=== PATIENT | male | born 1970 | race African-American/Black ===

== ENCOUNTER → 2016-09-11 | Outpatient (CLI) | payer BC ==
[~2016-09-11] MED LIST: AUGMENTIN 875 M1 TAB PO; CIPROFLOXACIN500 MG PO; DAYPRO600 M1 PO; FLONASE0.05 MG/AC NS; GLIPIZIDE XL5 MG PO; HTN MED PO; HYDROCODONE BIT1 T11 PO; LOPRESSOR25 MG PO; METFORMIN500 MG PO; PREVACID30 M1 PO; TRADJENTA; VICODIN 500 MG-1 TAB PO; ZESTRIL2.5 MG PO
[2016-09-11 13:31] LABS: BASO # 0.1 10*3/uL (0.0-0.1); BASO % 0.7 % (0.0-1.0); EOS # 0.2 10*3/uL (0.0-0.4); EOS % 1.4 % (1.0-4.0); HEMATOCRIT 47.9 % (42.0-52.0); HEMOGLOBIN 16.7 g/dl (14.0-18.0); IG # 0.1 10*3/uL (0.0-0.1); LYMPH # 2.4 10*3/uL (1.3-4.4); LYMPH % 21.3 % (27.0-41.0); MEAN CELL VOLUME 88.4 fl (80.0-94.0); MEAN CORPUSCULAR HGB 30.8 pg (27.0-31.0); MEAN CORPUSCULAR HGB CONC 34.9 g/dl (33.0-37.0); MEAN PLATELET VOLUME 9.9 fl (9.6-12.3); MONO % 9.1 % (3.0-9.0); NEUT # 7.6 10*3/uL (2.3-7.9); NEUT % 66.9 % (47.0-73.0); PLATELET COUNT AUTOMATED 321 10*3/uL (130-400); RED BLOOD COUNT 5.42 10*6/uL (4.50-5.90); RED CELL DISTRI WIDTH 12.8 % (0-14.5); WHITE BLOOD COUNT 11.3 10*3/uL (4.8-10.8)
[2016-09-11 13:59] LABS: ALBUMIN 3.9 gm/dl (3.1-4.5); ALKALINE PHOSPHATASE 82 U/L (45-117); BILIRUBIN, TOTAL 0.8 mg/dl (0.2-1.0); BUN 10 mg/dl (7-24); CARBON DIOXIDE 24 mmol/L (21-32); CHLORIDE 106 mmol/L (98-107); CHOLESTEROL 149 mg/dL (<200); EST GLOM FILT AFRICAN AMERICAN > 60 ml/min; GLUCOSE 171 mg/dL (65-99); HDL CHOLESTEROL 48 mg/dl (40-60); LDL CHOLESTEROL 77 mg/dL (9-159); PHOSPHOROUS 2.5 mg/dL (2.5-4.9); POTASSIUM 4.1 mmol/L (3.5-5.1); SGOT/AST 18 IU/L (3-35); SGPT/ALT 36 U/L (12-78); SODIUM 139 mmol/L (136-145); TRIGLYCERIDES 119 mg/dl (<150); VLDL CHOLESTEROL 24 mg/dL (6-40)
[2016-09-11 14:01] LABS: HEMOGLOBIN A1c 8.6 % (4.8-5.6)
[2016-09-11 14:21] LABS: VITAMIN D, 25-HYDROXY 24.2 ng/mL (30-100)
[2016-09-11 14:22] LABS: PTH INTACT 58.9 pg/mL (14.0-72.0)
[2016-09-12 08:11] LABS: MICRO ALBUMIN/CRE RATIO 339.2 (0.0-30.0)
== END ==
LOC: LAB 12:50
PROVIDERS: Internal Medicine Nephrology
DX: I12.9 Hypertensive chronic kidney disease with stage 1 through stage 4 chronic kidney disease, or unspecified chronic kidney disease (principal); N18.2 Chronic kidney disease, stage 2 (mild); E11.65 Type 2 diabetes mellitus with hyperglycemia; E11.22 Type 2 diabetes mellitus with diabetic chronic kidney disease; E55.9 Vitamin D deficiency, unspecified

== ENCOUNTER 2017-07-04 08:35 | Emergency (ER) | payer OTHER ==
[~2017-07-04] VITALS: Wt 124.7 kg
[2017-07-04 08:40] VITALS: BP 120/40
[2017-07-04] MEDS ORDERED: AMARYL4 MG PO (08:43)
[2017-07-04] MEDS ORDERED: TRULICITY1.5 MG/0.5 SC (08:44)
[2017-07-04] MEDS ORDERED: XANAX0.5 MG PO (08:45)
[2017-07-04] MEDS ORDERED: STRATTERA40 M1 PO (08:45)
== END 2017-07-04 11:10 | disposition home or self-care (01) ==
LOC: ED 08:35
DX: S93.402A Sprain of unspecified ligament of left ankle, initial encounter (principal); S50.02XA Contusion of left elbow, initial encounter; Z79.899 Other long term (current) drug therapy; W22.8XXA Striking against or struck by other objects, initial encounter; Y93.89 Activity, other specified; Y92.89 Other specified places as the place of occurrence of the external cause; Y99.8 Other external cause status

== ENCOUNTER → 2017-08-21 | Outpatient (CLI) | payer OTHER ==
[~2017-08-21] MED LIST changes: +AMARYL4 MG PO; +STRATTERA40 M1 PO; +TRULICITY1.5 MG/0.5 SC; +XANAX0.5 MG PO
[2017-08-21 16:17] LABS: BASO # 0.1 10*3/uL (0.0-0.1); BASO % 0.6 % (0.0-1.0); EOS # 0.2 10*3/uL (0.0-0.4); EOS % 1.6 % (1.0-4.0); HEMATOCRIT 48.6 % (42.0-52.0); HEMOGLOBIN 16.6 g/dl (14.0-18.0); LYMPH # 2.8 10*3/uL (1.3-4.4); LYMPH % 24.3 % (27.0-41.0); MEAN CELL VOLUME 89.7 fl (80.0-94.0); MEAN CORPUSCULAR HGB 30.6 pg (27.0-31.0); MEAN CORPUSCULAR HGB CONC 34.2 g/dl (33.0-37.0); MEAN PLATELET VOLUME 9.8 fl (9.6-12.3); MONO # 1.1 10*3/uL (0.1-1.0); MONO % 9.8 % (3.0-9.0); NEUT # 7.2 10*3/uL (2.3-7.9); NEUT % 63.1 % (47.0-73.0); PLATELET COUNT AUTOMATED 309 10*3/uL (130-400); RED BLOOD COUNT 5.42 10*6/uL (4.50-5.90); RED CELL DISTRI WIDTH 12.7 % (0-14.5); WHITE BLOOD COUNT 11.4 10*3/uL (4.8-10.8)
[2017-08-21 16:34] LABS: ALBUMIN 4.3 gm/dl (3.1-4.5); ALKALINE PHOSPHATASE 86 U/L (45-117); BUN 8 mg/dl (7-24); CHLORIDE 103 mmol/L (98-107); CREATININE 1.18 mg/dL (0.70-1.30); POTASSIUM 3.7 mmol/L (3.5-5.1); SGOT/AST 18 IU/L (3-35); SGPT/ALT 29 U/L (12-78); SODIUM 140 mmol/L (136-145); TOTAL PROTEIN 8.2 gm/dL (6.4-8.2)
[2017-08-21 16:41] LABS: PTH INTACT 53.6 pg/mL (14.0-72.0); VITAMIN D, 25-HYDROXY 24.6 ng/mL (30-100)
[2017-08-22 11:06] LABS: CREATININE,URINE 210.1 mg/dL (Not Estab.); MICRO ALBUMIN/CRE RATIO 168.4 (0.0-30.0)
== END | disposition home or self-care (01) ==
LOC: LAB 15:02
PROVIDERS: Internal Medicine Nephrology
DX: I12.9 Hypertensive chronic kidney disease with stage 1 through stage 4 chronic kidney disease, or unspecified chronic kidney disease (principal); N18.2 Chronic kidney disease, stage 2 (mild); E11.65 Type 2 diabetes mellitus with hyperglycemia; R79.89 Other specified abnormal findings of blood chemistry

== ENCOUNTER → 2017-12-21 | Outpatient (CLI) | payer OTHER | END | disposition home or self-care (01) | LOC: MRI 11:00 | DX: M54.12 Radiculopathy, cervical region (principal); M79.632 Pain in left forearm ==

== ENCOUNTER 2018-03-03 13:18 | Inpatient (IN) | payer OTHER ==
[~2018-03-03] VITALS: Ht 185.4 cm; Wt 129.8 kg
--- NOTE | ~2018-03-03 | EKG ---
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 Electronically Signed On 03-04-2018 16:42:41 PST by Randall Ocasio MD CM:EKGRPT:ELECTROCARDIOGRAM REPORT 1611 1642 BLANCHE NORMAN DRAFT REPORT BLANCHE COREA MD
--- NOTE | ~2018-03-03 | EKG ---
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 Electronically Signed On 03-04-2018 16:44:40 PST by Randall Ocasio MD CM:EKGRPT:ELECTROCARDIOGRAM REPORT 1644 BLANCHE NORMAN DRAFT REPORT BLANCHE COREA MD
--- NOTE | ~2018-03-03 | EKG ---
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
--- NOTE | ~2018-03-03 | CON ---
[place], [place] REPORT OF CONSULTATION NAME: TABATHA CORNELL [facility] [id number] UNIT #: [id number] ROOM: 401 DOCTOR: JAMARI DELANEY MD BIRTHDATE: [birth year] DOS: 03/04/2018 CARDIOLOGY CONSULTATION REASON FOR CONSULTATION: Chest discomfort and palpitations. HISTORY OF PRESENT ILLNESS: The patient is a 48-year-old man who has no previous history of heart disease. He was evaluated about [address] Nadir Dewey for palpitations and increased cardiac awareness. The patient reports that he did undergo catheterization at that time, which showed no evidence for significant coronary artery disease. He does have multiple risk factors for coronary disease including obesity, essential hypertension and type 2 diabetes mellitus. He has been evaluated for sleep apnea in the past, but it has been many years and that evaluation was negative. He does admit to snoring, but his denies that he has apneic spells. The patient does have a history of attention deficit disorder and is prescribed Concerta for this. He takes it only p.r.n. and very rarely. About 5 days ago, he knew that he was going to have a very disorganized day and therefore did take the Concerta for the first time in a couple of months. He took the pill at 7:00 a.m. and at about 2:00 p.m. he had an uncomfortable sensation in his chest. He felt his heart pounding hard and he felt dyspneic. He also felt weak. He stated that he did not have any chest pain. He rested and symptoms resolved. He assumed that the symptoms were due to his medications and did not think much of it until yesterday. 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 He had not taken his Concerta since the episode about 5 or 6 days ago. He became concerned and family felt that he did not look well. He was therefore brought to the Emergency Room. In the Emergency Room, he was in sinus rhythm. He was admitted to the hospital. Serial cardiac biomarkers have been negative and his EKG shows only sinus rhythm. PAST MEDICAL HISTORY: Includes: 1. ADHD. 2. Type 2 diabetes mellitus. 3. Horseshoe kidney with chronic renal insufficiency. 4. History of right knee surgery. 5. Cardiac evaluation by Dr. Nadir Dewey about 20 years ago showed no evidence for coronary artery disease per the patient. 6. Obesity. 7. History of sleep apnea evaluation 20 years ago was reportedly unremarkable. MEDICATIONS: Prior to admission: Alprazolam 0.5 mg at bedtime p.r.n., Strattera 40 mg daily p.r.n. agitation, glimepiride 4 mg daily, lansoprazole 30 mg daily p.r.n. and Trulicity 1.5 mg subcutaneously weekly. ALLERGIES: The patient has no known drug allergies. [place], [place] REPORT OF CONSULTATION NAME: TABATHA CORNELL UNIT #: [id number] ROOM: 401 DOCTOR: JAMARI DELANEY MD BIRTHDATE: [birth year] FAMILY HISTORY: His mother of cancer. His father in an accident, but he is adopted and is not clear on all of his family history. He does not know of any early coronary disease. REVIEW OF SYSTEMS: The patient denies diplopia or loss of vision. He denies focal weakness. He denies lightheadedness or syncope. He has felt weak during the events. He denies nausea or vomiting. He denies fevers, chills, sweats or recent weight change, although in the last year he believes he has gained about 20 pounds as his diabetes medications have been adjusted. He denies cough or hemoptysis. He denies any hematemesis or nausea. He denies change in bowel or bladder habits. He denies any skin rashes. He denies blood in his stools or urine. He denies heat or cold intolerance and denies polyuria or polydipsia. He denies any peripheral edema. He denies any cramping in his legs at rest or with exertion. He denies any hot or swollen joints. Remainder of the review of systems is negative except as noted above. 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 He does not use illegal drugs or tobacco and rarely consumes alcohol. PHYSICAL EXAMINATION: GENERAL: The patient is an overweight -Indian man who is awake, alert and oriented. VITAL SIGNS: Pulse is 75 and regular, blood pressure is 104/64. He is afebrile. He weighs 129.8 kg and has a body mass index of 37.7. HEENT: Normocephalic and atraumatic. Extraocular muscles are intact. Sclerae are clear. Pupils are equal, round and react to light. The oral mucosa is moist. Tongue is midline. NECK: Supple. He has no jugular distention. Carotids are full. There are no bruits. He has no neck or supraclavicular masses and no thyromegaly. LUNGS: Respirations are unlabored. His chest is clear to auscultation and percussion. He has no presacral edema or chest wall tenderness. CARDIOVASCULAR: His heart has a regular rhythm. He has a fourth heart sound, but no third heart sound or murmur. The PMI is not displaced. He has no precordial heave, lift or thrill. ABDOMEN: Obese, but otherwise benign, without masses, organomegaly or bruits. EXTREMITIES: Showed no clubbing, cyanosis or edema. Peripheral pulses are easily palpated in the feet. IMAGING: Electrocardiogram showed sinus rhythm and was a normal tracing. Chest x-ray showed normal cardiopulmonary findings. LABORATORY DATA: Hemoglobin is 15.5, white count 12,400, platelet count 285,000. Sodium 142, potassium 4.4, BUN 16, creatinine 1.3 with GFR greater than 60. Hemoglobin A1c 7.5. Serial troponin levels have been negative. Total cholesterol is 141, HDL 31, LDL 64, TSH is 3.31. IMPRESSIONS: 1. Atypical chest discomfort. The patient describes episodes of chest pressure [place], [place] REPORT OF CONSULTATION NAME: TABATHA CORNELL UNIT #: [id number] ROOM: 401 DOCTOR: JAMARI DELANEY MD BIRTHDATE: [birth year] associated with weakness and dyspnea. 2. History of type 2 diabetes mellitus. 3. Attention deficit hyperactivity disorder. The patient does occasionally take stimulant medications to treat his symptoms. 4. Obesity. PLAN: It is interesting that the patient's first episode occurred just after he had taken Concerta. His symptoms do not sound like coronary artery disease, but he does have risk factors and therefore I think that further evaluation with an exercise stress test and myocardial imaging is appropriate. I am concerned, however, that his symptoms may be due to paroxysmal arrhythmias, either SVT or atrial fibrillation. If his heart is structurally normal and he has no signs of ischemia, I will probably recommend that he wear an event recorder for 30 days as an outpatient to help catch some of these events and make sure that they are not due to atrial fibrillation. Further recommendations depend upon the results of his stress test and echo. I thank the hospitalist physicians for asking our advice regarding his care. JAMARI DELANEY MD CM:CONSTR:REPORT OF CONSULTATION 1236 03/04/18 1833 interface
[~2018-03-03 13:18] MED LIST changes: -PREVACID30 M1 PO; +PREVACID30 M2 PO
[2018-03-03 13:19] VITALS: BP 120/79
[2018-03-03 14:04] LABS: BASO # 0.1 10*3/uL (0.0-0.1); BASO % 0.7 % (0.0-1.0); EOS # 0.2 10*3/uL (0.0-0.4); EOS % 1.9 % (1.0-4.0); HEMATOCRIT 47.5 % (42.0-52.0); HEMOGLOBIN 16.4 g/dl (14.0-18.0); LYMPH # 2.3 10*3/uL (1.3-4.4); LYMPH % 20.5 % (27.0-41.0); MEAN CORPUSCULAR HGB 31.4 pg (27.0-31.0); MEAN CORPUSCULAR HGB CONC 34.5 g/dl (33.0-37.0); MEAN PLATELET VOLUME 9.7 fl (9.6-12.3); MONO # 1.2 10*3/uL (0.1-1.0); MONO % 10.9 % (3.0-9.0); NEUT # 7.3 10*3/uL (2.3-7.9); NEUT % 64.8 % (47.0-73.0); PLATELET COUNT AUTOMATED 302 10*3/uL (130-400); RED BLOOD COUNT 5.22 10*6/uL (4.50-5.90); RED CELL DISTRI WIDTH 12.6 % (0-14.5); WHITE BLOOD COUNT 11.4 10*3/uL (4.8-10.8)
[2018-03-03 14:14] LABS: ACT PARTIAL THROMBO TIME 24.5 SECONDS (20.8-31.5); INTERNATIONAL NORM RATIO 0.9 (2.0-3.5)
[2018-03-03 14:18] LABS: ALKALINE PHOSPHATASE 88 U/L (45-117); BUN 12 mg/dl (7-24); CHLORIDE 108 mmol/L (98-107); CREATININE 1.35 mg/dL (0.70-1.30); POTASSIUM 4.6 mmol/L (3.5-5.1); SGOT/AST 19 IU/L (3-35); SGPT/ALT 40 U/L (12-78); SODIUM 143 mmol/L (136-145); TOTAL PROTEIN 8.1 gm/dL (6.4-8.2)
[2018-03-03 14:21] LABS: TROPONIN I < 0.015 ng/ml (<0.045)
[2018-03-03 14:30] VITALS: BP 110/49
[2018-03-03 16:00] VITALS: BP 105/43
[2018-03-03 20:00] VITALS: BP 110/68; BP 112/64
[2018-03-04] VITALS: BP 105/55
[2018-03-04 06:17] LABS: BASO # 0.1 10*3/uL (0.0-0.1); BASO % 0.6 % (0.0-1.0); EOS # 0.4 10*3/uL (0.0-0.4); EOS % 3.3 % (1.0-4.0); HEMOGLOBIN 15.5 g/dl (14.0-18.0); LYMPH # 2.9 10*3/uL (1.3-4.4); LYMPH % 23.2 % (27.0-41.0); MEAN CELL VOLUME 91.6 fl (80.0-94.0); MEAN CORPUSCULAR HGB 30.9 pg (27.0-31.0); MEAN CORPUSCULAR HGB CONC 33.7 g/dl (33.0-37.0); MEAN PLATELET VOLUME 9.8 fl (9.6-12.3); MONO # 1.3 10*3/uL (0.1-1.0); MONO % 10.5 % (3.0-9.0); NEUT # 7.7 10*3/uL (2.3-7.9); NEUT % 61.8 % (47.0-73.0); PLATELET COUNT AUTOMATED 285 10*3/uL (130-400); RED BLOOD COUNT 5.02 10*6/uL (4.50-5.90); RED CELL DISTRI WIDTH 12.8 % (0-14.5); WHITE BLOOD COUNT 12.4 10*3/uL (4.8-10.8)
[2018-03-04 06:19] LABS: BUN 16 mg/dl (7-24); CHLORIDE 107 mmol/L (98-107); CHOLESTEROL 141 mg/dL (<200); PHOSPHOROUS 3.3 mg/dL (2.5-4.9); POTASSIUM 4.4 mmol/L (3.5-5.1); SODIUM 142 mmol/L (136-145); TRIGLYCERIDES 232 mg/dl (<150); VLDL CHOLESTEROL 46 mg/dL (6-40)
[2018-03-04 06:29] LABS: FREE T4 0.84 ng/dl (0.76-1.46); HDL CHOLESTEROL 31 mg/dl (40-60); LDL CHOLESTEROL 64 mg/dL (9-159)
[2018-03-04 08:12] VITALS: BP 104/64
[2018-03-04 12:00] VITALS: BP 104/57
[2018-03-04 16:00] VITALS: BP 115/65
[2018-03-04] MEDS ORDERED: Amaryl2 MG PO (16:33)
== END 2018-03-04 18:05 | disposition home or self-care (01) | DRG 392 ==
LOC: ED 13:18 → EDHOLD 14:39 → 4E 14:39
PROVIDERS: Emergency Medicine; Student in an Organized Health Care Education/Training Program
PROC: 4A02XM4 Measurement of Cardiac Total Activity, External Approach (ICD-10-PCS; principal; 2018-03-04)
PROC: 3E073KZ Introduction of Other Diagnostic Substance into Coronary Artery, Percutaneous Approach (ICD-10-PCS; 2018-03-04)
DX: K21.9 Gastro-esophageal reflux disease without esophagitis (principal); E66.01 Morbid (severe) obesity due to excess calories; E11.65 Type 2 diabetes mellitus with hyperglycemia; E11.22 Type 2 diabetes mellitus with diabetic chronic kidney disease; D72.829 Elevated white blood cell count, unspecified; E87.8 Other disorders of electrolyte and fluid balance, not elsewhere classified; G47.30 Sleep apnea, unspecified; E83.41 Hypermagnesemia; F90.9 Attention-deficit hyperactivity disorder, unspecified type; N18.9 Chronic kidney disease, unspecified; Z68.37 Body mass index [BMI] 37.0-37.9, adult; Z80.9 Family history of malignant neoplasm, unspecified; Z79.84 Long term (current) use of oral hypoglycemic drugs

== ENCOUNTER → 2018-11-29 | Outpatient (CLI) | payer OTHER ==
[~2018-11-29] MED LIST changes: +Amaryl2 MG PO
[2018-11-29 09:45] LABS: BASO # 0.1 10*3/uL (0.0-0.1); BASO % 0.7 % (0.0-1.0); EOS # 0.3 10*3/uL (0.0-0.4); EOS % 2.3 % (1.0-4.0); HEMATOCRIT 48.9 % (42.0-52.0); HEMOGLOBIN 16.6 g/dl (14.0-18.0); LYMPH # 2.5 10*3/uL (1.3-4.4); LYMPH % 20.8 % (27.0-41.0); MEAN CELL VOLUME 92.3 fl (80.0-94.0); MEAN CORPUSCULAR HGB 31.3 pg (27.0-31.0); MEAN CORPUSCULAR HGB CONC 33.9 g/dl (33.0-37.0); MEAN PLATELET VOLUME 9.6 fl (9.6-12.3); MONO # 1.2 10*3/uL (0.1-1.0); MONO % 9.9 % (3.0-9.0); NEUT # 7.9 10*3/uL (2.3-7.9); NEUT % 65.5 % (47.0-73.0); PLATELET COUNT AUTOMATED 342 10*3/uL (130-400); RED CELL DISTRI WIDTH 12.9 % (0-14.5); WHITE BLOOD COUNT 12.1 10*3/uL (4.8-10.8)
[2018-11-29 10:04] LABS: BUN 12 mg/dl (7-24); CHLORIDE 107 mmol/L (98-107); POTASSIUM 3.6 mmol/L (3.5-5.1); SGPT/ALT 37 U/L (12-78); SODIUM 140 mmol/L (136-145)
[2018-11-29 10:07] LABS: ALKALINE PHOSPHATASE 78 U/L (45-117); CHOLESTEROL 148 mg/dL (<200); CREATININE 1.24 mg/dL (0.70-1.30); HDL CHOLESTEROL 44 mg/dl (40-60); LDL CHOLESTEROL 75 mg/dL (9-159); SGOT/AST 18 IU/L (3-35); TRIGLYCERIDES 146 mg/dl (<150); VLDL CHOLESTEROL 29 mg/dL (6-40)
[2018-11-29 10:22] LABS: PTH INTACT 80.9 pg/mL (18.5-88.0)
[2018-11-30 10:04] LABS: CREATININE,URINE 180.4 mg/dL (Not Estab.); MICRO ALBUMIN/CRE RATIO 102.9 (0.0-30.0)
== END | disposition home or self-care (01) ==
LOC: LAB 08:28
PROVIDERS: Internal Medicine Nephrology
DX: I12.9 Hypertensive chronic kidney disease with stage 1 through stage 4 chronic kidney disease, or unspecified chronic kidney disease (principal); E11.22 Type 2 diabetes mellitus with diabetic chronic kidney disease; E11.65 Type 2 diabetes mellitus with hyperglycemia; N18.2 Chronic kidney disease, stage 2 (mild)